=== PATIENT | female | born 1965 | race Caucasian/White ===

== ENCOUNTER → 2017-02-15 | Outpatient (CLI) | payer OTHER | LOC: FIMAGING 09:54 | PROVIDERS: ATTEND Obstetrics & Gynecology | DX: Z12.31 Encounter for screening mammogram for malignant neoplasm of breast (principal) | CPT/HCPCS: G0202 ==

== ENCOUNTER → 2017-03-10 | Outpatient (CLI) | payer OTHER | LOC: FIMAGING 13:26 | PROVIDERS: ATTEND Nurse Practitioner Family | DX: J40 Bronchitis, not specified as acute or chronic (principal) ==

== ENCOUNTER → 2017-07-30 | Outpatient (CLI) | payer OTHER | LOC: FIMAGING 11:09 | PROVIDERS: ATTEND Family Medicine Sports Medicine | DX: M21.752 Unequal limb length (acquired), left femur (principal); M76.31 Iliotibial band syndrome, right leg; M16.11 Unilateral primary osteoarthritis, right hip ==

== ENCOUNTER 2017-11-23 07:11 | Inpatient (IN) | payer OTHER ==
--- NOTE | 2017-11-18 13:53 | GHP ---
[f rep st] PREOP HISTORY AND PHYSICAL DATE OF ADMISSION: 11/23/2017 CHIEF COMPLAINT: Right hip arthritis. HISTORY OF PRESENT ILLNESS: The patient is a 52-year-old woman admitted for a right total hip arthro plasty. She has had progressive pain in her right hip for the past 3 or 4 months. She experiences a pinching sensation. She complains of groin pain. She has pain on a daily basis and some night pain . She states that she has been limping. She uses ibuprofen. Her activities are limited. She works in environmental services at the hospital. She has trouble putting on her shoes and socks on the [facility] foot. She has a tried physical therapy which was only minimally helpful. She will undergo a rig ht total hip arthroplasty. She has advanced degenerative arthritis in her right hip. PAST MEDICAL HISTORY: Excellent general health. No history of heart disease, stents, DVT, hepatitis . She has questionable sleep apnea. She states that she snores. CURRENT MEDICATIONS: None. ALLERGIES: Drug allergies: None. Metal allergy: None. Latex allergy: None. SOCIAL HISTORY: The patient is single. She does not smoke cigarettes and occasionally drinks alcoho l. She works at [employer]. FAMILY HISTORY: Negative. PHYSICAL EXAMINATION: VITAL SIGNS: Height 5 feet 5-1/2 inches. Weight 214 pounds. BMI 35.1. EYES : Conjunctivae and sclerae are clear. Pupils are round and reactive. MOUTH: Good oral hygiene. N o loose teeth. CHEST: Clear. HEART: Regular rhythm. No murmurs. EXTREMITIES: Pertinent finding s limited to her right hip. She has full hip extension, 100 degrees of flexion. External rotation 2 0 degrees. Internal rotation 0 degrees. Abduction 30 degrees. She carries a lot of her weight thro ugh the thigh and buttocks. IMAGING: Preoperative films show severe degenerative arthritis of the right hip. She is bone on bon e. PLAN: She will undergo a right total hip arthroplasty. The surgery has been described to her, inclsammy spring the risks, complications, expectations, and recovery time. I have specifically discussed with phylicia quinteros the risk of dislocation, leg length inequality, infection, and sciatic nerve injury. She understa nds that she is relatively young for a total hip replacement and could require revision surgery in e future. She also understands that her weight increases her risk of complications or early failure of the hip implant. All her questions have been answered, and she consents to surgery. /[id number]/MODL
[~2017-11-23 07:11] MED LIST: POVIDONE-IODINE 20 ML in SODIUM CL IRRIG SOLUTION 500 ML IRR ONE; ROPIVACAINE 0.2% 80 MG, EPINEPHrine 0.2 MG, KETOROLAC TROMETHAMINE 30 MG in SYRINGE 0 ML IU ONE; TRANEXAMIC ACID 1,000 MG in NS (SYRINGE) 50 ML IV ONE
[2017-11-23] MEDS ORDERED: ceFAZolin 1 GM/5 ML SYR ONE (07:21)
[2017-11-23] MEDS ORDERED: FAMOTIDINE 20 MG TAB PO ONE (07:32)
[2017-11-23] MEDS ORDERED: DEXAMETHASONE 4 MG/ML VIAL IVP ONE (07:32)
[2017-11-23] MEDS ORDERED: ONDANSETRON 4 MG/2 ML VIAL IVP ONE (07:32)
[2017-11-23] MEDS ORDERED: GABAPENTIN 300 MG CAP PO ONE (07:32)
[2017-11-23] MEDS ORDERED: ceFAZolin 2 GM/SWFI 2 GM/20 ML SYR IVP ONE (07:32)
[2017-11-23] MEDS ORDERED: ACETAMINOPHEN 325 MG TAB PO ONE (07:32)
[2017-11-23] MEDS ORDERED: LIDOCAINE 1% 2 ML INJ ID PRN (07:37)
[2017-11-23] MEDS ORDERED: LR 1,000 ML IV ONE (07:37)
--- NOTE | 2017-11-23 08:24 | PDANEPAE ---
ANE History of Present Illness 52 year old female for right total hip arthroplasty. ANE Past Medical History - Cardiovascular History Hx Hypertension: No Hx Arrhythmias: No Hx Chest Pain: No Hx Coronary Artery / Peripheral Vascular Disease: No Hx CHF / Valvular Disease: No Hx Palpitations: No - Pulmonary History Hx COPD: No Hx Asthma/Reactive Airway Disease: No Hx Recent Upper Respiratory Infection: No Hx Oxygen in Use at Home: No Hx Sleep Apnea: No Sleep Apnea Screening Result - Last Documented: Negative Pulmonary History Comment: hx of pna 02/2017- treated and no issues currently - Neurologic History Hx Cerebrovascular Accident: No Hx Seizures: No Hx Dementia: No - Endocrine History Hx Diabetes: No Obesity: mild - Renal History Hx Renal Disorders: No - Liver History Hx Hepatic Disorders: No - Neurological & Psychiatric Hx Hx Neurological and Psychiatric Disorders: No - Cancer History Hx Cancer: No - Congenital Disorder History Hx Congenital Disorders: No - GI History Hx Gastrointestinal Disorders: No - Other Health History Other Health History: wears glasses. upper partial plate - Chronic Pain History Chronic Pain: Yes (right hip) - Surgical History Prior Surgeries: 12/11/10 right knee scope with Jacinta ANE Review of Systems Review of systems is: negative Review of Systems: - Exercise capacity Exercise capacity: >=4 METS METS (RN): 4 METS ANE Patient History - Allergies Allergies/Adverse Reactions: No Known Allergies Allergy (Verified 11/03/17 12:45) - Home Medications Home medications: home medication list seen and reviewed Home Medications: Cetirizine [ZyrTEC 10 mg (*)] 10 mg PO DAILY 11/03/17 [Last Taken 11/22/17] Ibuprofen [Motrin (*)] 200 mg PO DAILY PRN 11/03/17 [Last Taken 11/15/17] Ranitidine HCl [Zantac 75] 75 mg PO DAILY PRN 11/23/17 [Last Taken 1 Week Ago ~ 11/16/17] - NPO status NPO Since - Liquids (Date): 11/23/17 NPO Since - Liquids (Time): 05:30 NPO Since - Solids (Date): 11/22/17 NPO Since - Solids (Time): 19:30 - Anes Hx Anes Hx: no prior problems - Smoking Hx Smoking Status: Former smoker Marijuana use: No - Alcohol Use Alcohol Use: Occasionally - Family Anes Hx Family Anes Hx: neg - N/A Family Hx Anesthesia Complications: none ANE Labs/Vital Signs - Vital Signs Vital Signs: reviewed preoperatively; see RN documention for details Blood Pressure: 135/85 Heart Rate: 66 Respiratory Rate: 16 O2 Sat (%): 94 Height: 165.1 cm Weight: 96.162 kg ANE Physical Exam - Airway Neck exam: FROM Mallampati Score: Class 2 Mouth exam: normal dental/mouth exam Mouth image: 1 - Partial / false tooth - Pulmonary Pulmonary: no respiratory distress - Cardiovascular Cardiovascular: regular rate and rhythym - ASA Status ASA Status: II ANE Anesthesia Plan Anesthesia Plan: GA w LMA (GA is back-up plan only), MAC, spinal Total IV Anesthesia: No
--- NOTE | 2017-11-23 09:03 | PDHPUP ---
History & Physical Update H&P update statement: This history and physical update is based on an assessment of the patient which was completed after admission or registration (within 24 hours), but prior to the surgery/procedure. H&P update: H&P reviewed & patient examined
[2017-11-23] MEDS ORDERED: MIDAZOLAM 2 MG/2 ML VIAL IVP ONE (09:44)
[2017-11-23] MEDS ORDERED: MIDAZOLAM 2 MG/2 ML VIAL ONE (09:47)
[2017-11-23] MEDS ORDERED: PROPOFOL/EMULSION 500 MG/50 ML BOTTLE IV ONE ×2 (09:50→10:56)
[2017-11-23] MEDS ORDERED: ONDANSETRON 4 MG/2 ML VIAL ONE (10:29)
[2017-11-23] MEDS ORDERED: DEXAMETHASONE 4 MG/ML VIAL ONE (10:29)
[2017-11-23] MEDS ORDERED: epHEDrine SULFATE 10 MG/ML SYR ONE (10:35)
[2017-11-23] MEDS ORDERED: HYDROmorphONE/DILAUDID 2 MG/ML INJ IVP PRN (10:49)
[2017-11-23] MEDS ORDERED: fentaNYL 100 MCG/2 ML INJ IVP PRN (10:49)
[2017-11-23] MEDS ORDERED: ONDANSETRON 4 MG/2 ML VIAL IVP PRN ×2 (10:49→12:03)
[2017-11-23] MEDS ORDERED: LR 500 ML IV PRN (10:49)
[2017-11-23] MEDS ORDERED: NALOXONE HCL 0.4 MG/ML INJ IVP PRN (10:49)
[2017-11-23] MEDS ORDERED: PHENYLEPHRINE HCL 100 MCG/ML SYR IVP PRN (10:49)
[2017-11-23] MEDS ORDERED: oxyCODONE IR 5 MG TAB PO PRN (10:49)
[2017-11-23] MEDS ORDERED: ACETAMINOPHEN 500 MG TAB PO PRN (10:49)
[2017-11-23] MEDS ORDERED: epHEDrine SULFATE 10 MG/ML SYR IVP PRN (10:49)
[2017-11-23] MEDS ORDERED: PHENYLEPHRINE HCL 100 MCG/ML SYR ONE ×2 (11:06)
--- NOTE | 2017-11-23 11:27 | POSTOPPROG ---
Post Op Note Date of Operation: 11/23/17 Surgeon: Paul Recinos Nuclear Cardiology Technologist: Lydia Anesthesiologist: Dr. Valentín Craven Anesthesia: IV Sedation, Spinal Post-op Diagnosis: Right hip advanced degenerative arthritis Procedure: Right total hip arthroplasty Inf/Abcess present in the surg proc area at time of surgery?: No EBL: 100-500
[2017-11-23] MEDS ORDERED: TEMAZEPAM 15 MG CAP PO PRN (12:03)
[2017-11-23] MEDS ORDERED: PROMETHAZINE HCL 25 MG SUPPR PR PRN (12:03)
[2017-11-23] MEDS ORDERED: METOCLOPRAMIDE 10 MG/2 ML VIAL IVP PRN (12:03)
[2017-11-23] MEDS ORDERED: POLYETHYLENE GLYCOL 3350 17 GM PKT PO PRN (12:03)
[2017-11-23] MEDS ORDERED: CYCLOBENZAPRINE 10 MG TAB PO PRN (12:03)
[2017-11-23] MEDS ORDERED: traMADol 50 MG TAB PO PRN (12:03)
[2017-11-23] MEDS ORDERED: DIPHENOXYLATE/ATROPINE LOMOTIL 1 TAB PO PRN (12:03)
[2017-11-23] MEDS ORDERED: PROMETHAZINE HCL 25 MG/ML INJ IVP PRN (12:03)
[2017-11-23] MEDS ORDERED: MAGNESIUM HYDROXIDE 30 ML UDCUP PO PRN (12:03)
[2017-11-23] MEDS ORDERED: BISACODYL 10 MG SUPP PR PRN (12:03)
[2017-11-23] MEDS ORDERED: NS 500 ML IV PRN (12:03)
[2017-11-23] MEDS ORDERED: LACTULOSE 20 GM/30 ML UDCUP PO PRN (12:03)
[2017-11-23] MEDS ORDERED: ONDANSETRON DISINTEGRATING 4 MG TAB PO PRN (12:03)
[2017-11-23] MEDS ORDERED: diphenhydrAMINE 25 MG CAP PO PRN (12:03)
[2017-11-23] MEDS ORDERED: LR 1,000 ML IV SCH (12:30)
--- NOTE | 2017-11-23 12:35 | GOP ---
[f rep st] OPERATIVE REPORT DATE OF OPERATION: 11/23/2017 SURGEON: Paul Recinos MD RETAIL SALESWORKER: Ezequiel Matthews, MATERIAL MOVER, and Valentín Liz, PAC. ANESTHESIA: Combination of Marcaine, spinal, and IV sedation. ANESTHESIOLOGIST: Valentín Craven MD PREOPERATIVE DIAGNOSIS: Right hip severe degenerative arthritis. POSTOPERATIVE DIAGNOSIS: Right hip severe degenerative arthritis. PROCEDURE PERFORMED: Right total hip arthroplasty, ceramic femoral head on highly cross-linked polye thylene cup liner. FINDINGS: ESTIMATED BLOOD LOSS: About 400 mL. DESCRIPTION OF PROCEDURE: The patient was given 2 g of IV Ancef preoperatively within 60 minutes of surgery. She also received 1000 mg of IV tranexamic acid. She was placed on the operating room tabl e and given a spinal anesthesia with Marcaine by Dr. Valentín Craven. She was then placed supine and given IV sedation. A Samuel catheter was not used. She wore a ROSS stocking and SCD on the nonoperati ve leg. She was rolled to the left lateral decubitus position. The position was secured with the pe gboard table attachment. An axillary roll was used, and all pressure points were carefully padded. Her height is 5 feet 5-1/2 inches. Her BMI is 35.1. She was a large woman, which made positioning s omewhat difficult. I was careful to lock her pelvis in a vertical position. Her perineum was isolat ed with plastic adhesive drapes. Her right hip and right lower extremity were prepped with ChloraPre p. They were draped free using sterile sheets, stockinette, and Ioban plastic adhesive drape. The [employer] time-out was performed to verify the correct surgical side and site and the correct patient identity. The [place] time-out was also performed. I made a 6- to 7-inch straight oblique posterolateral hip skin incision. Subcutaneous tissues were s harply divided, and hemostasis was obtained using electrocautery. She had a 2- to 3-inch deep layer of subcutaneous fat. Her fascia shaheed was identified and split along the axis of its fibers. I curve d posteriorly and proximally, and split the fascia of the gluteus yousuf and bluntly split the muscl e fibers in line with their orientation. The Charnley self-retaining retractor was inserted. Her sc iatic nerve was located, partially exposed, and protected throughout the procedure. The external rot ators and the posterior hip capsule were divided as separate layers at the base of the femoral neck, tagged, and reflected posteriorly. A smooth 8-inch Steinmann pin was inserted vertically into the il ium, superior to the acetabulum. An 8-inch drill bit was inserted vertically into the greater trocha nter and parallel to the first pin. The distance between the two was measured for leg length referen ce. Her femoral head was dislocated posteriorly. Severe degenerative changes were present. The fem oral neck was osteotomized at the appropriate level and inclination. I was careful to preserve all the posterior capsule and most of the anterior capsule. The remnant of her damaged labrum was excised. I prepared the femur first. This allowed me to control director the amount of natural femoral neck anteversion. This, in turn, allowed me to later determine the correct amount of cup anteversion. She had approx imately 10 to 12 degrees of natural femoral neck anteversion. The canal was opened laterally with a box chisel. I used a starter reamer on power and then hand broached sequentially up to size 4. I us ed a [place] Accolade II size 4 broach as a trial stem. I was careful to lateralize adequately. Appropriate retractors were inserted to expose the acetabulum. Because of her size, the acetabulum w as very deep in the wound. The acetabulum was reamed sequentially up to a size 51. I selected a 52 mm Vincent Trident II Tritanium cluster hole acetabular shell. This was tapped securely into place i n the proper degree of inclination and anteversion. The fit was very tight. I used the transverse a cetabular ligament and other acetabular bony landmarks to help me properly orient the cup. I inserte d a screw-in metal dome hole plug. I performed a series of trial reductions to determine length and stability. I concluded that the siz e 4 stem with a -2.5 mm standard offset with a 36 mm head and a 10-degree lipped liner gave me the pr oper combination of appropriate length and good anterior and posterior stability. I recognized that I was lengthening her a few millimeters; however, I felt this was important for the additional stabil ity it provided. I did not want to use a high offset stem because that did not match her preoperativ e anatomy. The 10-degree lip Vincent X3 highly cross-linked polyethylene liner was inserted and tapped securely into place. The [place] Accolade II stem in a size 4 with standard offset was inserted and was very tight. I did one final trial reduction and confirmed that the -2.5 mm neck length with a 36 mm head was the proper combination. The Vincent Biolox Delta ceramic head with an outside diameter of 36 mm and a neck length of -2.5 was tapped securely onto the clean trunnion. The acetabulum was irrigated, cleaned, and the hip was reduced one final time. She had excellent anterior and posterior stability and appropriate lengthening. She was a couple of millimeters short preoperatively. 40 mL of the joint anesthetic cocktail was injected in the capsule, the deep musculature, and the sub cutaneous tissues along the skin edges. The joint was thoroughly irrigated one final time with a dil cecilio Betadine solution. Her sciatic nerve was reinspected and looked unharmed. The external rotators and the posterior hip capsule were repaired in separate layers with #2 FiberWir e sutures through drill holes in the greater trochanter. This provided a good posterior capsular and external rotator repair. The fascia shaheed was closed first with 2 interrupted [id number] #2 Fib erWire sutures, followed by a running #2 barbed Ethicon Stratafix PDO suture. The subcutaneous tissu es were closed in layers, beginning with some interrupted 2-0 Monocryl sutures, followed by a running 0 barbed Ethicon Stratafix Monoderm suture. The skin was closed with a running 3-0 barbed Ethicon S tratafix Monoderm subcuticular suture. The skin edges were reapproximated and sealed with Dermabond glue. The wound was covered with a large piece of waterproof sterile Mepilex surgical dressing. The Mepilex sacral dressing was applied. A long-leg ROSS stocking and SCD were applied to her right lower extremity. She wore a stocking and S CD on the opposite leg during the procedure. An abduction pillow was placed between her knees. She was awakened from anesthesia and rolled to the supine position on her [facility]. She was taken to PACU in satisfactory condition. There were no recognized intraoperative complications. COUNTS: The sponge and needle count were correct on 2 occasions. IMPLANTS: I used a [place] Trident II Tritanium hemispherical cluster hole acetabular shell with an outside diameter of 52 mm. The liner was a Vincent X3, 10-degree highly cross-linked liner with an i nside diameter of 36 mm. The femoral component was a press-fit Vincent standard offset Accolade II s tem in size 4. The femoral head was a Vincent Biolox Delta ceramic head with an -2.5 mm neck length and a 36 mm outside diameter. Ezequiel Matthews and Jorge Liz acted as surgical first assistants. Their assistance was a medical necessity for safe completion of the procedure. /[id number]/MODL
[2017-11-23] MEDS ORDERED: ceFAZolin 2 GM/DEXTROSE 100 ML IV SCH (14:00)
[2017-11-23] MEDS: oxyCODONE IR 5 MG TAB PO PRN ×2 (15:15→18:51)
--- NOTE | 2017-11-23 16:03 | POSTANESTH ---
Post Anesthetic Evaluation Cardiovascular Status: Normal, Stable, Similar to Pre-Op Cond Respiratory Status: Normal, Stable, Similar to Pre-op Cond. Level of Consciousness/Mental Status: Can Participate in Eval, Alert and Oriented Pain Control: Adequate, Prn Tx Ordered Nausea/Vomiting Control: Adequate, Prn Tx Ordered Complications Possibly Related to Anesthesia: None Noted
[2017-11-23] MEDS: KETOROLAC 15 MG/1 ML SDV IVP SCH ×2 (17:36→23:54)
[2017-11-23] MEDS: ACETAMINOPHEN 325 MG TAB PO SCH ×2 (17:37→23:53)
[2017-11-23] MEDS: ceFAZolin 2 GM/SWFI 2 GM/20 ML SYR IVP SCH (17:37)
[2017-11-23] MEDS: FAMOTIDINE 20 MG TAB PO SCH (20:36)
[2017-11-23] MEDS: ASPIRIN 325 MG TAB PO SCH (20:36)
[2017-11-23] MEDS: SENNOSIDES/DOCUSATE SODIUM TAB PO SCH (20:37)
[2017-11-24] MEDS: ceFAZolin 2 GM/SWFI 2 GM/20 ML SYR IVP SCH (02:05)
[2017-11-24] MEDS: KETOROLAC 15 MG/1 ML SDV IVP SCH ×2 (06:10→12:57)
[2017-11-24] MEDS: ACETAMINOPHEN 325 MG TAB PO SCH ×2 (06:10→12:57)
--- NOTE | 2017-11-24 08:09 | SOAPPROG ---
SOAP Progress Note Assessment/Plan: Assessment: POD #1, s/p R IRIS Awake, alert, afebrile. Normal sciatic nerve function. Post op films look good. Dressing clean and dry. VSS. H/H ok. Mild pain. OOB yesterday. Plan: PT/OT today. D/c to home later today. 11/24/17 08:08 Objective: Vital Signs Temp Pulse Resp BP Pulse Ox 36.6 C 47 L 16 104/55 L 98 11/23/17 23:17 11/24/17 04:00 11/24/17 04:00 11/24/17 04:00 11/24/17 04:00 Laboratory Results 11/24/17 04:35 11/23/17 11/24/17 11/25/17 05:59 05:59 05:59 Intake Total 2500 400 Output Total 2000 300 Balance 500 100 ICD10 Worksheet Patient Problems: Problems Problem Status Onset Osteoarthritis of right hip Acute
--- NOTE | 2017-11-24 08:35 | GDS ---
[f rep st] DISCHARGE SUMMARY ADMISSION DIAGNOSIS: Severe right hip osteoarthritis. DISCHARGE DIAGNOSIS: Severe right hip osteoarthritis. OPERATIONS PERFORMED: Right total hip arthroplasty, posterior approach, with ceramic femoral head on highly cross-linked polyethylene cup liner. POSTOPERATIVE COMPLICATIONS: None. CONDITION ON DISCHARGE: Improved. HOSPITAL COURSE: The patient was admitted to the hospital on the day of surgery. Her admission whit e blood cell count was 7.75. Her hemoglobin was 13.9 and her hematocrit was 41.2. The same day unde r a combination of Marcaine spinal anesthesia and IV sedation, she underwent a right total hip arthro plasty. A Samuel catheter was not used. She was able to void spontaneously following surgery. From the 1st postoperative day, the patient's hemoglobin and hematocrit were 10.5 and 32.0. She did not receive any blood transfusion. She was treated with multimodal DVT prophylaxis including full-st rength aspirin, ROSS stockings, and SCDs. She was seen by Physical Therapy and made good progress wit h hip range of motion exercises and ambulation. By the time of discharge, she was independent with her walker and afebrile. DISPOSITION: The patient is discharged to her home. She will go directly to outpatient physical the rapy. She has prescriptions for tramadol and oxycodone and Celebrex for pain control. Full-strength aspirin x21 days for DVT prophylaxis. Weightbearing as tolerated. ROSS stockings x1 week. Abductio n pillow in bed x3 weeks. She will be seen back in the office in 3 weeks. She is to call the office sooner if she has any questions or problems. /[id number]/MODL
[2017-11-24] MEDS: FAMOTIDINE 20 MG TAB PO SCH (08:37)
[2017-11-24] MEDS: SENNOSIDES/DOCUSATE SODIUM TAB PO SCH (08:37)
[2017-11-24] MEDS: ASPIRIN 325 MG TAB PO SCH (08:37)
[2017-11-24] MEDS: oxyCODONE IR 5 MG TAB PO PRN (08:39)
[2017-11-24] MEDS ORDERED: FERROUS SULFATE 140 MG TAB.ER PO SCH (09:00)
[2017-11-24] MEDS ORDERED: CETIRIZINE 10 MG TAB PO SCH (09:00)
--- NOTE | 2017-11-24 09:26 | SOAPPROG ---
LAMONTE Progress Note Assessment/Plan: Assessment: Pt. seen. Doing very well. Plan: Home today after PT 11/24/17 09:26 Objective: Vital Signs Temp Pulse Resp BP Pulse Ox 36.5 C 71 16 107/68 90 L 11/24/17 08:00 11/24/17 08:00 11/24/17 08:00 11/24/17 08:00 11/24/17 08:00 Laboratory Results 11/24/17 04:35 11/23/17 11/24/17 11/25/17 05:59 05:59 05:59 Intake Total 2500 400 Output Total 2000 300 Balance 500 100 ICD10 Worksheet Patient Problems: Problems Problem Status Onset Osteoarthritis of right hip Acute
[2017-11-24 11:28] VITALS: BP 120/73
--- NOTE | 2017-11-24 14:15 | ASMTCMCOM ---
CM Note CM Note Notes: Pt medically stable for d/c after R IRIS. PT rec home/outpatient. No CM d/c needs identified. Date Signed: 11/24/2017 02:15 PM Electronically Signed By:BERONICA Carbajal
== END 2017-11-24 13:07 | disposition home or self-care (01) | DRG 470 ==
LOC: F3N 07:11
PROVIDERS: ADMIT Orthopaedic Surgery; ATTEND Orthopaedic Surgery
PROC: 0SR904Z Replacement of Right Hip Joint with Ceramic on Polyethylene Synthetic Substitute, Open Approach (ICD-10-PCS; principal; 2017-11-23 09:45)
DX: M16.11 Unilateral primary osteoarthritis, right hip (principal); E66.9 Obesity, unspecified; Z68.35 Body mass index [BMI] 35.0-35.9, adult
CPT/HCPCS: 97110-GP; 97116-GP; 97161-GP; 97165-GO; 97535-GO; J0171; J0690; J1100; J1885; J2250; J2370; J2405; J2704; J2795

== ENCOUNTER → 2018-04-15 | Outpatient (CLI) | payer OTHER | LOC: FIMAGING 14:35 | PROVIDERS: ATTEND Obstetrics & Gynecology | DX: Z12.31 Encounter for screening mammogram for malignant neoplasm of breast (principal) ==